=== PATIENT | female | born 1990 | race Two or more races ===

== ENCOUNTER → 2020-01-11 | Outpatient (CLI) | payer OTHER | END | disposition home or self-care (01) | LOC: PRENATAL 09:04 | DX: O99.89 Other specified diseases and conditions complicating pregnancy, childbirth and the puerperium (principal); O36.80X1 Pregnancy with inconclusive fetal viability, fetus 1; Z36.89 Encounter for other specified antenatal screening ==

== ENCOUNTER → 2020-03-01 | Outpatient (CLI) | payer OTHER | END | disposition home or self-care (01) | LOC: PRENATAL 12:56 | PROVIDERS: ATTEND Obstetrics & Gynecology Maternal & Fetal Medicine | DX: O99.89 Other specified diseases and conditions complicating pregnancy, childbirth and the puerperium (principal); O35.3XX0 Maternal care for (suspected) damage to fetus from viral disease in mother, not applicable or unspecified; Z36.89 Encounter for other specified antenatal screening ==

== ENCOUNTER 2020-05-09 11:56 | Inpatient (IN) | payer OTHER ==
[~2020-05-09] VITALS: Ht 170.2 cm; Wt 85.3 kg
[2020-05-09] MEDS ORDERED: PRENATAL TABLE1 EAC2 PO (13:14)
== END 2020-05-14 14:09 | disposition home or self-care (01) | DRG 805 ==
LOC: LDR 11:56 → OB/GYN 05-12 12:01
PROVIDERS: ADMIT Obstetrics & Gynecology; ATTEND Obstetrics & Gynecology
PROC: 10E0XZZ Delivery of Products of Conception, External Approach (ICD-10-PCS; principal; 2020-05-12)
PROC: 4A1HXFZ Monitoring of Products of Conception, Cardiac Rhythm, External Approach (ICD-10-PCS; 2020-05-12)
PROC: 3E033VJ Introduction of Other Hormone into Peripheral Vein, Percutaneous Approach (ICD-10-PCS; 2020-05-12)
PROC: 0HQ9XZZ Repair Perineum Skin, External Approach (ICD-10-PCS; 2020-05-12)
DX: O42.113 Preterm premature rupture of membranes, onset of labor more than 24 hours following rupture, third trimester (principal); O60.14X0 Preterm labor third trimester with preterm delivery third trimester, not applicable or unspecified; Z37.0 Single live birth; O70.0 First degree perineal laceration during delivery; Z3A.30 30 weeks gestation of pregnancy; Z20.828 Contact with and (suspected) exposure to other viral communicable diseases

== ENCOUNTER 2023-12-28 18:36 | Inpatient (IN) | payer OTHER ==
[~2023-12-28] VITALS: Ht 170.2 cm; Wt 87.1 kg
[~2023-12-28 18:36] MED LIST: PRENATAL TABLE1 EAC2 PO
[2023-12-28] MEDS ORDERED: TERBUTALINE SULFATE 1 MG/ML AMPUL SUBCUTANEO STA (19:53)
[2023-12-28] MEDS ORDERED: NIFEDIPINE 30 MG TAB.SA.OSM PO ONE (20:00)
[2023-12-28] MEDS ORDERED: RINGERS SOLUTION,LACTATED 1,000 ML IV SCH (20:00)
[2023-12-28] MEDS ORDERED: TERBUTALINE SULFATE 1 MG/ML AMPUL SUBCUTANEO ONE (20:00)
[2023-12-28] MEDS ORDERED: BETAMETHASONE ACETATE,SOD PHOS 30 MG/5 ML ML ONE (20:02)
[2023-12-28] MEDS ORDERED: INDOMETHACIN 50 MG CAPSULE PO STA (20:03)
[2023-12-28] MEDS ORDERED: BETAMETHASONE ACETATE,SOD PHOS 30 MG/5 ML ML IM ONE (20:15)
[2023-12-28 20:17] LABS: HEMATOCRIT 35.7 % (36.0-45.00); HEMOGLOBIN 12.5 g/dL (12.0-15.00); MEAN CELL VOLUME 79.4 fL (80.00-100.00); MEAN CORPUSCULAR HEMOGLOBIN 27.8 pg (27.00-32.0); MEAN CORPUSCULAR HGB CONC 35.1 g/dl (32.0-36.0); PLATELET COUNT 246 K/uL (150-450); RED CELL DISTRIBUTION WIDTH 13.8 % (11.5-14.5)
[2023-12-28 20:18] LABS: URINE APPEARANCE Clear; URINE BILIRRUBIN Negative (NEGATIVE); URINE BLOOD Negative; URINE COLOR Yellow; URINE GLUCOSE Negative (NEGATIVE); URINE LEUKOCYTE Moderate; URINE NITRATE Negative; URINE PROTEIN Negative (NEGATIVE); URINE UROBILINOGEN 0.2 E.U./dl
[2023-12-28 20:23] LABS: URINE BACTERIA 1057.1 uL (0.0-1933); URINE EPITHELIAL CELLS 39.1 uL (0.0-38.8); URINE WBC 72.3 uL (0.0-23.2)
[2023-12-28 20:45] LABS: ALBUMIN 2.9 gm/dL (3.4-5.0); BILIRUBIN TOTAL 0.31 mg/dL (0.3-1.2); CALCIUM 9.4 mg/dL (8.5-10.1); CREATININE SERUM 0.49 mg/dL (0.55-1.02); GFR 145.44; GLOBULINA 3.7 G/DL (2.4-3.5); POTASSIUM 4.06 mEq/L (3.5-5.1); TOTAL PROTEIN 6.6 gm/dL (6.4-8.2)
[2023-12-28] MEDS ORDERED: NIFEDIPINE 30 MG TAB.SA.OSM PO STA (20:56)
[2023-12-28] MEDS ORDERED: GLUMETZA500 MG PO (21:09)
[2023-12-28] MEDS ORDERED: VITAMIN D-40010 MCG PO (21:09)
[2023-12-28] MEDS ORDERED: MetFORMIN HCL 500 MG TABLET PO SCH (21:19)
[2023-12-28] MEDS ORDERED: hydrOXYzine PAMOATE 50 MG CAPSULE PO ONE (21:30)
[2023-12-29] MEDS ORDERED: INDOMETHACIN 50 MG CAPSULE PO SCH (02:00)
[2023-12-29] MEDS ORDERED: NIFEDIPINE 30 MG TAB.SA.OSM PO SCH (02:00)
[2023-12-29] MEDS ORDERED: MetFORMIN HCL 500 MG TABLET PO SCH (09:00)
[2023-12-29] MEDS ORDERED: TERBUTALINE SULFATE 1 MG/ML AMPUL SUBCUTANEO SCH ×2 (09:00→14:00)
[2023-12-29] MEDS ORDERED: AMPICILLIN SODIUM 2,000 MG VIAL IV STA (10:53)
[2023-12-29] MEDS ORDERED: AMPICILLIN SODIUM 1,000 MG VIAL IV SCH (18:00)
[2023-12-29] MEDS ORDERED: BETAMETHASONE ACETATE,SOD PHOS 30 MG/5 ML ML IM ONE (20:15)
[2023-12-30] MEDS ORDERED: INDOMETHACIN 50 MG CAPSULE PO SCH (17:00)
[2023-12-31] MEDS ORDERED: INDOMETHACIN 50 MG CAPSULE PO SCH (21:00)
[2024-01-01] MEDS ORDERED: INDOMETHACIN 50 MG CAPSULE PO SCH (09:00)
[2024-01-01] MEDS ORDERED: NIFEDIPINE 30 MG TAB.SA.OSM PO SCH (09:00)
[2024-01-01] MEDS ORDERED: TERBUTALINE SULFATE 2.5 MG TABLET PO SCH (12:00)
== END 2024-01-01 10:23 | disposition home or self-care (01) | DRG 832 ==
LOC: LDR 18:36
PROVIDERS: ADMIT Specialist; ATTEND Specialist
PROC: 4A1HXCZ Monitoring of Products of Conception, Cardiac Rate, External Approach (ICD-10-PCS; principal; 2023-12-28)
DX: O24.410 Gestational diabetes mellitus in pregnancy, diet controlled (principal); O24.113 Pre-existing type 2 diabetes mellitus, in pregnancy, third trimester; Z3A.31 31 weeks gestation of pregnancy; Z20.822 Contact with and (suspected) exposure to COVID-19